=== PATIENT | male | born 1960 | race Caucasian/White ===

== ENCOUNTER 2019-09-13 14:22 | Emergency (ER) | payer OTHER ==
[~2019-09-13] VITALS: Ht 190.5 cm; Wt 104.3 kg
[2019-09-13 16:15] VITALS: BP 142/70
== END 2019-09-13 16:15 | disposition home or self-care (01) ==
LOC: ER 14:22
DX: S91.212A Laceration without foreign body of left great toe with damage to nail, initial encounter (principal); E11.9 Type 2 diabetes mellitus without complications; F17.210 Nicotine dependence, cigarettes, uncomplicated; Z87.442 Personal history of urinary calculi; W20.8XXA Other cause of strike by thrown, projected or falling object, initial encounter; Y93.89 Activity, other specified; Y92.89 Other specified places as the place of occurrence of the external cause; Y99.8 Other external cause status